=== PATIENT | male | born 1995 | race Caucasian/White ===

== ENCOUNTER 2019-08-19 18:31 | Emergency (ER) | payer SELFPAY ==
[~2019-08-19] VITALS: Ht 167.6 cm; Wt 66.2 kg
[2019-08-19 19:15] VITALS: BP_SYST 154
--- NOTE | 2019-08-19 19:38 | NUR ---
Patient to ER bed 8 to gown for evaluation. Side rails up. Report given to Madeleine TURK/Esther TURK.
--- NOTE | 2019-08-19 19:39 | NUR ---
Patient ambulated to bed 8. Patient was "running, tripped over a crack and fell". Laceration above right eye. Patient complains of pain and rates it a 6 out 10.
--- NOTE | 2019-08-19 19:39 | NUR ---
Further assessment done. Patient denies dizziness, nausea, ringing in ears, or neck pain. Patient did not lose consciousness when he fell. Patient has a 2.5cm laceration on his right eyebrow.
--- NOTE | 2019-08-19 19:54 | NUR ---
ER Dr. Xiao at bedside examining patient.
[2019-08-19] MEDS ORDERED: LIDOCAINE/EPI 1% 1:100000 20 ML VIAL INJ ONE (20:15)
[2019-08-19] MEDS ORDERED: BACITRACIN 1 GM OINT TP ONE (20:45)
[2019-08-19 20:49] VITALS: BP_SYST 154
--- NOTE | 2019-08-19 20:49 | NUR ---
Patient given written and verbal discharge instructions and verbalizes understanding. ER MD Xiao discussed with patient the results and treatment provided. Patient in stable condition. ID arm band removed. Rx of Acetaminophen given. Patient educated on pain management and to follow up with PMD. Pain Scale 6/10. 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 Opportunity for questions provided and answered. Medication side effect fact sheet provided.
== END 2019-08-19 20:49 | disposition home or self-care (01) ==
LOC: SED 18:31
DX: S01.111A Laceration without foreign body of right eyelid and periocular area, initial encounter (principal); W18.09XA Striking against other object with subsequent fall, initial encounter; Y93.89 Activity, other specified; Y92.89 Other specified places as the place of occurrence of the external cause; Y99.8 Other external cause status
CPT/HCPCS: 99282

== ENCOUNTER 2019-08-22 15:30 | Emergency (ER) | payer SELFPAY ==
[~2019-08-22] VITALS: Ht 167.6 cm; Wt 77.1 kg
[2019-08-22 16:13] VITALS: BP_SYST 149
--- NOTE | 2019-08-22 16:13 | NUR ---
Patient to ER chair for evaluation. Side rails up.
--- NOTE | 2019-08-22 16:15 | NUR ---
Patient return for 72 hour wound check to right eyebrow. No redness or swelling noted. No discharge. Voiced no complaints/injuries per patient or as noted. Will continue to monitor.
--- NOTE | 2019-08-22 16:30 | NUR ---
RADHA Bateman examining patient.
[2019-08-22 16:43] VITALS: BP_SYST 149
--- NOTE | 2019-08-22 16:43 | NUR ---
Patient given written and verbal discharge instructions and verbalizes understanding. ER MD discussed with patient the results and treatment provided. Patient in stable condition. ID arm band removed. Rx of Motrin given. Patient educated on pain management and to follow up with PMD. Pain Scale 0/10 Opportunity for questions provided and answered. Medication side effect fact sheet provided.
== END 2019-08-22 16:43 | disposition home or self-care (01) ==
LOC: SED 15:30
DX: S01.111D Laceration without foreign body of right eyelid and periocular area, subsequent encounter (principal); X58.XXXD Exposure to other specified factors, subsequent encounter
CPT/HCPCS: 99282